=== PATIENT | female | born 1980 | race Caucasian/White ===

== ENCOUNTER 2016-08-02 12:17 | Emergency (ER) | END 2016-08-02 16:25 | disposition left against medical advice (07) | DX: Z53.21 Procedure and treatment not carried out due to patient leaving prior to being seen by health care provider (principal) ==

== ENCOUNTER 2016-09-12 08:52 | Emergency (ER) | payer MEDICAID, OTHER ==
[~2016-09-12] VITALS: Wt 96.1 kg
[~2016-09-12 08:52] MED LIST: DICY10CA60 PO; ONDA4TAB14 PO
[2016-09-12 10:36] LABS: URINE BLOOD (Dip) POC Negative (NEGATIVE)
[2016-09-12 10:48] LABS: ADD SCAN DIFF NO
--- NOTE | 2016-09-12 10:51 | RADRPT ---
PROCEDURE: Chest Radiograph. CLINICAL INDICATION: Chest pain TECHNIQUE: Single frontal chest radiograph. COMPARISON: None available FINDINGS: The cardiomediastinal silhouette is within normal limits. No infiltrate or effusion is seen. Th e bones are intact. IMPRESSION: 1. Unremarkable chest radiograph. RPTAT: KK .Pete Blackman MD, MD Date Time Electronically viewed and signed by .Pete Blackman MD, on 09/12/2016 10:51 .B/
[2016-09-12 10:59] LABS: BASOPHILS % 0.2 % (0.0-2.0); EOSINOPHILS % 0.7 % (0.0-7.0); HEMATOCRIT 38.7 % (37.0-47.0); HEMOGLOBIN 12.4 g/dl (12.0-16.0); LYMPHOCYTES # 1.3 10^3/ul (0.8-2.9); LYMPHOCYTES % 29.9 % (15.0-51.0); MEAN CORPUSCULAR HEMOGLOBIN 24.5 pg (29.0-33.0); MEAN CORPUSCULAR VOLUME 76.5 fl (82.0-101.0); MEAN PLATELET VOLUME 10.6 fl (7.4-10.4); MONOCYTE # 0.2 10^3/ul (0.3-0.9); MONOCYTES % 5.3 % (0.0-11.0); NEUTROPHIL # 2.8 10^3/ul (1.6-7.5); NEUTROPHILS % 63.7 % (39.0-77.0); PLATELET COUNT 265 10^3/UL (140-415); RED BLOOD COUNT 5.06 10^6/ul (4.20-5.40); RED CELL DISTRIBUTION WIDTH 15.1 % (11.5-14.5); WHITE BLOOD COUNT 4.4 10^3/ul (4.8-10.8)
--- NOTE | 2016-09-12 11:08 | ERD ---
ER Documentation Chief Complaint Date/Time DATE: 09/12/16 TIME: 11:02 Chief Complaint CP SINCE LAST NIGHT AFTER EATING, FELT PALPITATION TODAY WITH MILD SOB HPI Patient is a 35-year-old female with past medical history of anemia presents emergency department with chest pain 1 day. Patient states her chest pain started at 7 PM prior to eating dinner yesterday. Patient states that the pain was in her mid chest and did not radiate. Patient denied any arm pain, diaphoresis, loss of consciousness. Patient states currently her chest pain has resolved. Patient denies any chest pain at this time. She states that this morning she did have some palpitations. Palpitations lasted less than 1 minute. Patient denies any shortness of breath, leg swelling, nausea, vomiting , abdominal pain or loss of consciousness. Patient states she does have a decreased appetite however is "tired of moving her mouth, tired of eating." Patient states that she was recently told she was anemic by her PCP and started taking iron supplements. She has been taking her iron supplements for 1 day. Patient denies any recent surgery, prolonged travel, OCP use. Patient does state that she is having some burning pain with urination. She does have a history of a recent history of an UTI and states she did not complete the full course of antibiotics. ROS All systems reviewed and are negative except as per history of present illness. Medications Home Meds Active Scripts Ondansetron (Ondansetron Odt) 4 Mg Tab.rapdis, 4 MG PO Q6H Y for NAUSEA AND/OR VOMITING, #30 TAB Prov:AYAN CHAPIN MD 06/12/16 Dicyclomine Hcl* (Bentyl*) 10 Mg Capsule, 10 MG PO BID Y for abdominal cramping , #30 CAP Prov:AYAN CHAPIN MD 06/12/16 Reported Medications [None] No Conflict Check 05/26/14 Allergies Allergies: Coded Allergies: No Known Allergy (Verified , 09/12/16) PMhx/Soc History of Surgery: Yes (CHOLECYSTECTOMY) Anesthesia Reaction: No Hx Neurological Disorder: Yes (MIGRAINES) Hx Respiratory Disorders: No Hx Cardiac Disorders: No Hx Psychiatric Problems: Yes (Anxiety) Hx Miscellaneous Medical Probl: Yes (ANEMIA) Hx Alcohol Use: No Hx Substance Use: No Hx Tobacco Use: No Smoking Status: Never smoker Physical Exam Vitals Vital Signs Date Time Temp Pulse Resp B/P Pulse Ox O2 Delivery O2 Flow Rate FiO2 09/12/16 08:54 98.8 73 21 156/89 99 Physical Exam GENERAL: Well-developed, well-nourished female. Appears in no acute distress. Speaking in full sentences HEAD: Normocephalic, atraumatic. EYES: Pupils are equally reactive bilaterally. EOMs grossly intact. No conjunctival erythema. ENT: Moist mucous membranes. No uvula deviation. No kissing tonsils. NECK: Supple. No meningismus. Normal range of motion of the neck. CHEST: Non-tender to palpation LUNG: Clear to auscultation bilaterally. No rhonchi, wheezing, rales or coarse breath sounds. HEART: Regular rate and rhythm. No murmurs, rubs or gallops. ABDOMEN: No scars, ecchymosis or rashes noted. Soft, nontender, and nondistended. Positive bowel sounds in all four quadrants. No rebound tenderness , no guarding. (-) McBurney's point tenderness. No CVA tenderness. BACK: No midline tenderness. EXTREMITIES: Equal pulses bilaterally. No peripheral clubbing, cyanosis or edema. No unilateral leg swelling. NEUROLOGIC: Alert and oriented x3, cooperative. Mood and affect appropriate to situation. Cranial nerves II through XII are grossly intact. Normal speech. Motor exam: 5/5 strength in upper and lower extremities. Sensory exam: Sensation intact to light touch on all four extremities. Cerebellar function exam: Steady gait. No pronator drift. SKIN: Normal color. Warm and dry. No rashes or lesions. Result Diagram: 09/12/16 1038 09/12/16 1038 Results 24 hrs Laboratory Tests Test 09/12/16 10:34 09/12/16 10:38 Bedside Urine Blood Negative Bedside Urine Glucose (UA) Negative Bedside Urine Ketones (LAB) Negative Bedside Urine Leukocyte Esterase (L Negative Bedside Urine Nitrite (LAB) Negative Bedside Urine Protein (LAB) Negative Bedside Urine pH (LAB) 6.0 Anion Gap 19 Basophils # 0.010^3/ul Basophils % 0.2% Blood Urea Nitrogen 9mg/dl Calcium Level 9.0mg/dl Carbon Dioxide Level 27mmol/L Chloride Level 102mmol/L Creatinine 0.53mg/dl Eosinophils # 0.010^3/ul Eosinophils % 0.7% Glucose Level 97mg/dl Hematocrit 38.7% Hemoglobin 12.4g/dl Lymphocytes # 1.310^3/ul Lymphocytes % 29.9% Mean Corpuscular Hemoglobin 24.5pg Mean Corpuscular Hemoglobin Concent 32.0g/dl Mean Corpuscular Volume 76.5fl Mean Platelet Volume 10.6fl Monocytes # 0.210^3/ul Monocytes % 5.3% Neutrophils # 2.810^3/ul Neutrophils % 63.7% Nucleated Red Blood Cells # 0.010^3/ul Nucleated Red Blood Cells % 0.0/100WBC Platelet Count 15641^3/UL Potassium Level 4.1mmol/L Red Blood Count 5.0610^6/ul Red Cell Distribution Width 15.1% Sodium Level 144mmol/L Troponin I < 0.012ng/ml White Blood Count 4.410^3/ul Procedures/MDM ED COURSE: The patient was stable throughout ED course. I kept the patient and/or family informed of laboratory and diagnostic imaging results throughout the ED course. EKG: Read by Dr. Moreno, attending physician. EKG shows normal sinus rhythm at a rate of 61 bpm. No arrhythmias, acute ST elevations or T wave changes were noted. DIAGNOSTIC IMAGING: Read by radiologist. DIAGNOSTIC IMAGING REPORT Patient: HERMINIO DIETRICH : 1980 Age: 35 Sex: F MR #: [id number] DOS: 09/12/16 1020 Ordering MD: EDUAR MATA PA-C Location: [facility] Room/Bed: PROCEDURE: Chest Radiograph. CLINICAL INDICATION: Chest pain TECHNIQUE: Single frontal chest radiograph. COMPARISON: None available FINDINGS: The cardiomediastinal silhouette is within normal limits. No infiltrate or effusion is seen. The bones are intact. IMPRESSION: 1. Unremarkable chest radiograph. RPTAT: KK .Pete Blackman MD, MD Date Time Electronically viewed and signed by .Pete Blackman MD, MD on 2016 10:51 .B/ CC: EDUAR MATA PA-C MEDICAL DECISION MAKING: This is a 35-year-old female who presents with chest pain and palpitations which occurred yesterday however she denies any pain today. Pain is now resolved. Patient denied any fever, chills, shortness of breath, diaphoresis or loss of consciousness. Vital signs were reviewed. Patient was afebrile. Patient was not hypoxic. Cardiac exam was normal. Lung exam was normal. EKG was within normal limits. Low suspicion for acute coronary syndrome, arrhythmia or pericarditis. CXR was within normal limits. Low suspicion for pneumothorax, pneumonia or pleural effusion. Troponin was negative. Patient denied any leg swelling, recent surgeries, travel, exogenous estrogen use. PERC score was negative. Low suspicion for PE or DVT. CBC showed no evidence of systemic infection or severe anemia. CMP showed no evidence of electrolyte abnormalities , severe acidosis, alkalosis, renal failure, or liver disease. Lipase showed no evidence of acute pancreatitis. UA showed no evidence of acute infection or hematuria. Urine test was negative.Given these findings, the patient s presentation is most consistent with palpitations and chest pain of unknown etiology. DISCHARGE: At this time, patient is stable for discharge and outpatient management. I have instructed the patient to follow-up with his/her primary care physician in 1-2 days. If symptoms persist, patient may need to see a deli manager for further examinations and testing including 24 hour holter monitoring. I have instructed the patient to promptly return to the ER at any time for any new or worsening symptoms including increased increased pain, fever, nausea, vomiting, numbness, weakness, diaphoresis or LOC. The patient and/or family expressed understanding of and agreement with this plan. All questions were answered. Home care instructions were provided. Departure Diagnosis: Primary Impression: Palpitations Condition: Stable Patient Instructions: Palpitations Additional Instructions: Call your primary care doctor TOMORROW for an appointment during the next 1-2 days.See the doctor sooner or return here if your condition worsens before your appointment time. Patient was advised she may need to follow-up with a deli manager for further management of her symptoms. Patient may need a 24-hour Holter monitor for further workup. EDUAR MATA PA-C Sep 12, 2016 11:07
[2016-09-12 11:15] LABS: ANION GAP 19 (8-16)
[2016-09-12 11:29] LABS: CARBON DIOXIDE 27 mmol/L (21-31); CHLORIDE 102 mmol/L (97-110); GLUCOSE 97 mg/dl (70-220); POTASSIUM 4.1 mmol/L (3.5-5.1); SODIUM 144 mmol/L (135-144)
[2016-09-12 11:30] LABS: BLOOD UREA NITROGEN 9 mg/dl (7-20); CREATININE 0.53 mg/dl (0.44-1.00); TROPONIN-I < 0.012 ng/ml (0.00-0.12)
== END 2016-09-12 13:13 | disposition home or self-care (01) ==
LOC: FTE 08:52
DX: R00.2 Palpitations (principal)
CPT/HCPCS: 36415; 71010; 80048; 81003; 84484; 85025; 93005; Z7502

== ENCOUNTER 2017-03-16 03:54 | Emergency (ER) | payer MEDICAID, OTHER ==
[~2017-03-16] VITALS: Ht 172.7 cm; Wt 105.5 kg
[2017-03-16 04:06] VITALS: Ht 172.7 cm; Wt 105.5 kg
[2017-03-16 04:31] LABS: URINE BLOOD (Dip) POC Negative (NEGATIVE)
[2017-03-16 04:42] LABS: BASOPHILS % 0.3 % (0.0-2.0); EOSINOPHILS # 0.1 10^3/ul (0.0-0.5); EOSINOPHILS % 0.8 % (0.0-7.0); HEMATOCRIT 36.6 % (37.0-47.0); HEMOGLOBIN 12.3 g/dl (12.0-16.0); LYMPHOCYTES # 1.8 10^3/ul (0.8-2.9); LYMPHOCYTES % 20.5 % (15.0-51.0); MEAN CORPUSCULAR HEMOGLOBIN 26.5 pg (29.0-33.0); MEAN CORPUSCULAR HGB CONC 33.6 g/dl (32.0-37.0); MEAN CORPUSCULAR VOLUME 78.7 fl (82.0-101.0); MONOCYTE # 0.4 10^3/ul (0.3-0.9); MONOCYTES % 4.7 % (0.0-11.0); NEUTROPHIL # 6.5 10^3/ul (1.6-7.5); NEUTROPHILS % 73.4 % (39.0-77.0); PLATELET COUNT 222 10^3/UL (140-415); RED BLOOD COUNT 4.65 10^6/ul (4.20-5.40); RED CELL DISTRIBUTION WIDTH 14.7 % (11.5-14.5); WHITE BLOOD COUNT 8.9 10^3/ul (4.8-10.8)
[2017-03-16 04:48] LABS: ADD UMIC NO; UR ASCORBIC ACID NEGATIVE (NEGATIVE); UR BILIRUBIN (Dip) NEGATIVE (NEGATIVE); UR BLOOD (Dip) NEGATIVE (NEGATIVE); UR CLARITY CLEAR (CLEAR); UR COLOR STRAW (YELLOW); UR GLUCOSE (Dip) NEGATIVE (NEGATIVE); UR KETONES (Dip) NEGATIVE (NEGATIVE); UR LEUKOCYTE ESTERASE (Dip) NEGATIVE Leu/ul (NEGATIVE); UR NITRITE (Dip) NEGATIVE (NEGATIVE); UR SPECIFIC GRAVITY (Dip) 1.004 (1.003-1.030); UR TOTAL PROTEIN (Dip) NEGATIVE (NEGATIVE); UR UROBILINOGEN (Dip) NEGATIVE (NEGATIVE)
--- NOTE | 2017-03-16 05:26 | RADRPT ---
PROCEDURE: ULTRASOUND OBSTETRICAL CLINICAL INDICATION: 36-year-old female with pelvic pain. TECHNIQUE: Multiple sonographic images of the pelvis were obtained. The images were reviewed on a PACS workstation. COMPARISON: No prior studies are available for comparison. FINDINGS: The cervix is not well visualized. There is a single viable intrauterine gestation. Cardiac activit y is present with 148 beats per minute. There is a variable presentation. Measurements were made in order to determine age. The results are as follows: BPD = 4.47 cm, HC = 16.18 cm, AC = 14.36 cm, FL = 2.91 cm. This yields and estimated gestational ag e of approximately 19 weeks 2 days. The estimated date of delivery is August 08, 2017. The EFW = 286 +/- 43 g. The GP is 24%. The placenta is posterior. There is no evidence for an abruption or placenta previa. There is a normal amount of amniotic fluid with maximal vertical pocket of 4.3 cm. IMPRESSION: Single viable intrauterine gestation of approximately 90 weeks 2 days. The estimated date of delive ry is August 08, 2017. .Jose Virgen MD, Date Time Electronically viewed and signed by .Jose Virgen MD, MD on 03/16/2017 05:25 .M/
[2017-03-16] MEDS ORDERED: CEPH-443 PO (05:42)
--- NOTE | 2017-03-16 05:46 | ERD ---
ER Documentation Chief Complaint Date/Time DATE: 03/16/17 TIME: 05:43 Chief Complaint Suprapubic pain with frequent urination. 5 months HPI This is a 36-year-old female says she is 20 weeks approximately and is having a few hours of frequent urination but no dysuria no hematuria she says she is having some discomfort in the suprapubic region with occasional sensation in the left upper abdomen. No back pain no flank pain no vaginal bleeding no contractions no recent fever cough. ROS All systems reviewed and are negative except as per history of present illness. Medications Home Meds Active Scripts Cephalexin* (Keflex*) 500 Mg Capsule, 500 MG PO QID for 5 Days, CAP Prov:JENNIFER GARCIA DO 03/16/17 Ondansetron (Ondansetron Odt) 4 Mg Tab.rapdis, 4 MG PO Q6H Y for NAUSEA AND/OR VOMITING, #30 TAB Prov:AYAN CHAPIN MD 06/12/16 Dicyclomine Hcl* (Bentyl*) 10 Mg Capsule, 10 MG PO BID Y for abdominal cramping , #30 CAP Prov:AYAN CHAPIN MD 06/12/16 Reported Medications [None] No Conflict Check 05/26/14 Allergies Allergies: Coded Allergies: No Known Allergy (Verified , 09/12/16) PMhx/Soc History of Surgery: Yes (CHOLECYSTECTOMY) Anesthesia Reaction: No Hx Neurological Disorder: Yes (MIGRAINES) Hx Respiratory Disorders: No Hx Cardiac Disorders: No Hx Psychiatric Problems: Yes (Anxiety) Hx Miscellaneous Medical Probl: Yes (ANEMIA) Hx Alcohol Use: No Hx Substance Use: No Hx Tobacco Use: No Smoking Status: Never smoker FmHx Family History: No coronary disease Physical Exam Vitals Vital Signs Date Time Temp Pulse Resp B/P Pulse Ox O2 Delivery O2 Flow Rate FiO2 03/16/17 04:06 98.0 90 22 147/84 99 Physical Exam Const: Well-developed, well-nourished Head: Atraumatic, normocephalic Eyes: Normal Conjunctiva, PERRLA, EOMI, normal sclera, no nystagmus ENT: Normal External Ears, Nose and Mouth, moist mucus membranes. Neck: Full range of motion. No meningismus, no lymphadenopathy. Resp: Clear to auscultation bilaterally, no wheezing, rhonchi, rales Cardio: Regular rate and rhythm, no murmurs, S1 S2 present Abd: Soft, some mild suprapubic tenderness gravid, non distended. Normal bowel sounds, no guarding or rebound, no pulsitile abdominal masses or bruits Skin: No petechiae or rashes, no ecchymosis , no maculopapular rash Back: No midline or flank tenderness Ext: No cyanosis, or edema, FROM x 4, normal inspection, neurovascularly intact x 4 Neur: Awake and alert, STR 5/5 x 4, sensation intact x 4, no focal findings, cerebellum intact Psych: Normal Mood and Affect Result Diagram: 03/16/17 0429 Results 24 hrs Laboratory Tests Test 03/16/17 04:29 03/16/17 04:37 White Blood Count 8.910^3/ul Red Blood Count 4.6510^6/ul Hemoglobin 12.3g/dl Hematocrit 36.6% Mean Corpuscular Volume 78.7fl Mean Corpuscular Hemoglobin 26.5pg Mean Corpuscular Hemoglobin Concent 33.6g/dl Red Cell Distribution Width 14.7% Platelet Count 10974^3/UL Mean Platelet Volume 10.0fl Neutrophils % 73.4% Lymphocytes % 20.5% Monocytes % 4.7% Eosinophils % 0.8% Basophils % 0.3% Nucleated Red Blood Cells % 0.0/100WBC Neutrophils # 6.510^3/ul Lymphocytes # 1.810^3/ul Monocytes # 0.410^3/ul Eosinophils # 0.110^3/ul Basophils # 0.010^3/ul Nucleated Red Blood Cells # 0.010^3/ul Urine Color STRAW Urine Clarity CLEAR Urine pH 6.0 Urine Specific [place] 1.004 Urine Ketones NEGATIVEmg/dL Urine Nitrite NEGATIVEmg/dL Urine Bilirubin NEGATIVEmg/dL Urine Urobilinogen NEGATIVEmg/dL Urine Leukocyte Esterase NEGATIVELeu/ul Urine Hemoglobin NEGATIVEmg/dL Urine Glucose NEGATIVEmg/dL Urine Total Protein NEGATIVEmg/dl Bedside Urine pH (LAB) 6.0 Bedside Urine Protein (LAB) Negative Bedside Urine Glucose (UA) Negative Bedside Urine Ketones (LAB) Negative Bedside Urine Blood Negative Bedside Urine Nitrite (LAB) Negative Bedside Urine Leukocyte Esterase (L Negative Procedures/MDM PROCEDURE: ULTRASOUND OBSTETRICAL CLINICAL INDICATION: 36-year-old female with pelvic pain. TECHNIQUE: Multiple sonographic images of the pelvis were obtained. The images were reviewed on a PACS workstation. COMPARISON: No prior studies are available for comparison. FINDINGS: The cervix is not well visualized. There is a single viable intrauterine gestation. Cardiac activity is present with 148 beats per minute. There is a variable presentation. Measurements were made in order to determine age. The results are as follows: BPD = 4.47 cm, HC = 16.18 cm, AC = 14.36 cm, FL = 2.91 cm. This yields and estimated gestational age of approximately 19 weeks 2 days. The estimated date of delivery is August 08, 2017. The EFW = 286 +/- 43 g. The GP is 24%. The placenta is posterior. There is no evidence for an abruption or placenta previa. There is a normal amount of amniotic fluid with maximal vertical pocket of 4.3 cm. IMPRESSION: Single viable intrauterine gestation of approximately 90 weeks 2 days. The estimated date of delivery is August 08, 2017. .Jose Virgen MD, Date Time Electronically viewed and signed by .Jose Virgen MD, on 03/16/2017 05:25 .M/ CC: JENNIFER GARCIA DO No UTI. Fetus looks adequate. Patient slightly having some urethritis. Will try few days of Keflex and cranberry juice. Given warning precautions to return Departure Diagnosis: Primary Impression: Urethritis Additional Impression: Suprapubic pain Condition: Stable Referrals: JAC BOLES MD, APOSTOLOS A. DO Mar 16, 2017 05:46
== END 2017-03-16 05:49 | disposition home or self-care (01) ==
LOC: FTE 03:54
DX: O99.89 Other specified diseases and conditions complicating pregnancy, childbirth and the puerperium (principal); N34.2 Other urethritis; R10.13 Epigastric pain; Z3A.19 19 weeks gestation of pregnancy
CPT/HCPCS: 36415; 76805; 81003; 85025; Z7502

== ENCOUNTER 2017-10-22 00:28 | Emergency (ER) | END 2017-10-22 04:10 | disposition home or self-care (01) ==